=== PATIENT | female | born 1965 | race Caucasian/White ===

== ENCOUNTER 2023-07-20 22:12 | Emergency (ER) | payer OTHER ==
[~2023-07-20] VITALS: Ht 160 cm; Wt 95.6 kg
[2023-07-20] MEDS ORDERED: FAMOTIDINE 20MG/2ML VIAL IVP ONE (22:55)
[2023-07-20] MEDS ORDERED: dexAMETHasone 20MG/5ML VIAL IV ONE (22:55)
[2023-07-21 02:30] VITALS: BP 143/76; TEMP 98.1; O2SAT 95
[2023-07-21] MEDS ORDERED: EPIP0.3I2 IM (02:35)
[2023-07-21] MEDS ORDERED: PRED20TA PO (02:35)
== END 2023-07-21 02:48 | disposition home or self-care (01) ==
LOC: EDBD 22:12 → M ED 22:12
DX: T78.2XXA Anaphylactic shock, unspecified, initial encounter (principal); F10.10 Alcohol abuse, uncomplicated; Z91.018 Allergy to other foods; Z79.52 Long term (current) use of systemic steroids; Z79.02 Long term (current) use of antithrombotics/antiplatelets
CPT/HCPCS: 96374; 99284; S0028